=== PATIENT | female | born 1960 | race Caucasian/White ===

== ENCOUNTER 2019-02-04 15:12 | Emergency (ER) | payer BC, OTHER ==
--- NOTE | 2019-02-04 16:32 | EDM.PDOC ---
ED HPI GENERAL MEDICAL PROBLEM - General Chief Complaint: Lower Extremity Injury/Pain Stated Complaint: RIGHT FOOT INJURY/PAIN Time Seen by Provider: 02/04/19 16:30 Source of Information: Reports: Patient History Limitations: Reports: No Limitations - History of Present Illness INITIAL COMMENTS - FREE TEXT/NARRATIVE: Carmen is a 58 year old female, c/o right foot pain after she rolled her foot around noon today walking in her flip flop sandals, she took ibuprofen which helped minimally, pain with ambulation, improves with rest. Onset: Today, Sudden Duration: Hour(s): (3) Right Feet Pain Score (Numeric/FACES): 8 - Related Data Allergies Allergy/AdvReac Type Severity Reaction Status Date / Time No Known Allergies Allergy Verified 02/04/19 16:24 Home Meds: Home Meds Levothyroxine [Synthroid] 1 tab PO DAILY 02/04/19 [History] Past Medical History HEENT History: Reports: Impaired Vision Cardiovascular History: Reports: Afib Musculoskeletal History: Reports: Fracture Endocrine/Metabolic History: Reports: Hypothyroidism - Past Surgical History Cardiovascular Surgical History: Reports: Cardiac Ablation GI Surgical History: Reports: Appendectomy Female Surgical History: Reports: Hysterectomy Social & Family History - Tobacco Use Smoking Status *Q: Never Smoker - Recreational Drug Use Recreational Drug Use: No Review of Systems - Review of Systems Review Of Systems: ROS reveals no pertinent complaints other than HPI. ED EXAM, GENERAL - Physical Exam Exam: See Below Exam Limited By: No Limitations General Appearance: Alert, WD/WN, No Apparent Distress Head: Atraumatic, Normocephalic Neck: Normal Inspection, Supple, Non-Tender Respiratory/Chest: No Respiratory Distress Cardiovascular: Regular Rate, Rhythm Extremities: Normal Inspection, Other (tenderness to plantar aspect of right food, arch region, no deformity, cap refill strength intact) Neurological: Alert, Oriented, CN II-XII Intact Psychiatric: Normal Affect, Normal Mood Skin Exam: Warm, Dry, Intact Lymphatic: No Adenopathy Course - Vital Signs Last Recorded V/S: Last Vital Signs Temp 35.5 C 02/04/19 16:23 Pulse 64 02/04/19 16:23 Resp 16 02/04/19 16:23 BP 151/65 H 02/04/19 16:23 Pulse Ox 98 02/04/19 16:23 Right Foot Strain, xray negative for fracture. Soft top post op shoe recommended for the next few days. Ibuprofen/Tylenol as needed for pain. RICE encouraged. Follow up with PCP PRN if symptoms persist. Patient agreeable to plan of care and discharged in stable condition. - Orders/Labs/Meds Orders: Active Orders 24 hr Category Date Time Status Foot Comp Min 3V Rt [CR] Stat Exams 02/04/19 16:30 Taken Departure - Departure Time of Disposition: 18:00 Disposition: Home, Self-Care 01 Condition: Good Clinical Impression: Right foot strain Qualifiers: Encounter type: initial encounter Qualified Code(s): S96.911A - Strain of unspecified muscle and tendon at ankle and foot level, right foot, initial encounter - Discharge Information Instructions: MICHELLE for Routine Care of Injuries, Muscle Strain Referrals: Santa Tripathi MD [Primary Care Provider] - Forms: ED Department Discharge Additional Instructions: Post op shoe for 3-5 days or a good supportive tennis shoe. Ibuprofen and/or Tylenol as needed for pain. Ice for 20 minutes every 2 hours for the first 24 hours. If still having pain in the next few days, be re-evaluated at your primary care clinic. - My Orders Last 24 Hours: My Active Orders 02/04/19 16:30 Foot Comp Min 3V Rt [CR] Stat - Assessment/Plan Last 24 Hours: My Active Orders 02/04/19 16:30 Foot Comp Min 3V Rt [CR] Stat
--- NOTE | 2019-02-04 17:31 | CRLCR ---
INDICATION: Pain midfoot, rolled injury. TECHNIQUE: Three views. FINDINGS: No visible fracture. There is no dislocation. No acute bone or joint abnormality is identified. Large plantar calcaneal enthesophyte. IMPRESSION: No radiographic evidence of fracture/dislocation/acute bone or joint abnormality. Chronic change as described. Dictated by Ford Bhatia MD @ Feb 04 2019 5:24PM Signed by Dr. Ford Bhatia @ Feb 04 2019 5:28PM
== END 2019-02-04 17:35 | disposition home or self-care (01) ==
LOC: JP.ED 15:12
DX: S96.911A Strain of unspecified muscle and tendon at ankle and foot level, right foot, initial encounter (principal); E03.9 Hypothyroidism, unspecified; I48.91 Unspecified atrial fibrillation; Z90.49 Acquired absence of other specified parts of digestive tract; Z90.710 Acquired absence of both cervix and uterus; Z79.899 Other long term (current) drug therapy; X50.1XXA Overexertion from prolonged static or awkward postures, initial encounter
CPT/HCPCS: 73630-RT; 99283-25